=== PATIENT | female | born 1995 | race Caucasian/White ===

== ENCOUNTER 2023-08-28 12:09 | Emergency (ER) | payer BC ==
[2023-08-28] MEDS ORDERED: Ondansetron ODT 4 MG TAB ONE (13:08)
[2023-08-28] MEDS ORDERED: Lorazepam 1 MG TAB ONE (13:08)
[2023-08-28 13:26] LABS: #Basophils 0.2 10x3/uL (0.0-0.2); #Eosinphils 0.5 10x3/uL (0.0-0.5); #Monocytes 0.5 10x3/uL (0.0-1.1); #Neutrophils 7.2 10x3/uL (1.5-8.4); %Basophils 1.5 % (0.0-2.0); %Eosinophils 4.6 % (0.0-6.0); %Lymphocytes 19.6 % (18.0-47.0); %Monocytes 4.9 % (0.0-10.0); %Neutrophils 68.9 % (40.0-75.0); Hematocrit 45.9 % (34.9-44.5); Hemoglobin 15.9 g/dL (12.0-15.5); Mean Corpuscular HGB CONC 34.6 g/dL (32.0-36.0); Mean Corpuscular Hemoglobin 30.5 pg (27.0-33.0); Mean Corpuscular Volume 87.9 fl (81.6-98.3); Mean Platelet Volume 8.8 fl (7.4-10.4); Platelet Count 338 10x3/uL (150-450); RBC Distribution Width 12.4 % (11.5-14.5); Red Blood Cell (RBC) Count 5.22 10x6/uL (3.90-5.03); White Blood Cell (WBC) Count 10.4 10x3/uL (3.5-10.5)
[2023-08-28 13:34] LABS: Bilirubin Neg (Negative); Blood, Urine 25 (Negative); Clarity Slightly Cloudy (Clear); Glucose, Urine (Dipstick) Normal (Negative); Ketone, Urine Negative (Negative); Leukocyte 25 (Negative); Nitrite Negative (Negative); Protein, Urine (Dipstick) 30 mg/dl (Neg-Trace); Specific Gravity, Urine 1.015 (1.005-1.030); Urobilinogen Normal mg/dL (Less than 2)
[2023-08-28 13:37] LABS: ALT (SGPT) 26 U/L (8-55); AST (SGOT) 24 U/L (5-34); Albumin 4.9 g/dL (3.5-5.0); Alkaline Phosphatase 58 U/L (40-110); Anion Gap 15 mmol/L (10-20); BUN (Urea Nitrogen) 12 mg/dL (7.0-18.7); Bilirubin, Total 1.8 mg/dL (0.2-1.2); Calc. Creatinine Clearance 0 mL/min (70-130); Carbon Dioxide 20 mmol/L (22-29); Chloride 106 mmol/L (98-107); Estimated GFR 100; Globulin 3.1 g/dL (2.4-3.5); Glucose 117 mg/dL (70-105); Potassium 3.8 mmol/L (3.5-5.1); Sodium 137 mmol/L (136-145)
[2023-08-28 13:59] LABS: Bacteria/HPF 1+ HPF (None Seen); CAUTI Indications for Culture Pelvic or flank pain; RBC/HPF 0-3 HPF (0-3)
[2023-08-28 14:00] LABS: Urine Culture Reflex No No
== END 2023-08-28 14:17 | disposition home or self-care (01) ==
LOC: CSHERS 12:09
DX: F41.0 Panic disorder [episodic paroxysmal anxiety] (principal)
CPT/HCPCS: 80053; 81001; 85025; 87077; 87086; 99283; Q0162